=== PATIENT | male | born 1930 | race Caucasian/White ===

== ENCOUNTER 2018-08-04 10:11 | Emergency (ER) | payer MEDICARE, OTHER ==
[2018-08-04 10:34] VITALS: BP 156/93
--- NOTE | 2018-08-04 11:17 | UC ---
Skin Complaint HPI - HPI Summary HPI Summary: 87-year-old male comes to clinic today with a nonhealing wound right lower leg. He gets stuck by a THORN 2 weeks ago. It was not a saul rivas or blackberry rivas. He thinks it was more of a THISTLE. He denies any foreign body in. A firm area developed at the site. He's been keeping it clean treating it with triple antibiotic but is getting worse. No drainage no fevers. - History of Current Complaint Chief Complaint: UCSkin Time Seen by Provider: 08/04/18 10:41 Stated Complaint: SKIN ISSUE Pain Intensity: 0 - Allergy/Home Medications Allergies/Adverse Reactions: Allergies Allergy/AdvReac Type Severity Reaction Status Date / Time atorvastatin [From Lipitor] Allergy Severe Swelling Verified 08/04/18 10:25 Of Face,Lips,& Throat Iodinated Contrast- Oral and Allergy Mild Rash Verified 08/04/18 10:25 IV Dye levofloxacin [From Levaquin] Allergy Mild Rash Verified 08/04/18 10:25 Home Medications: Home Medications Aspirin 81 mg CHEW TAB* 162 mg PO DAILY 08/04/18 [History Confirmed 08/04/18] Losartan TAB* [Cozaar TAB*] 50 mg PO DAILY 08/04/18 [History Confirmed 08/04/18] Ubidecarenone [Co Q-10] 100 mg PO DAILY 08/04/18 [History Confirmed 08/04/18] Review of Systems Constitutional: Negative Skin: Other - SEE HPI Eyes: Negative ENT: Negative Respiratory: Negative Cardiovascular: Palpitations Gastrointestinal: Negative Motor: Negative Neurovascular: Negative Musculoskeletal: Negative Neurological: Negative Is Patient Immunocompromised?: No All Other Systems Reviewed And Are Negative: Yes PMH/Surg Hx/FS Hx/Imm Hx Cardiovascular History: Cardiac Disease - Surgical History Surgical History: Yes Surgery Procedure, Year, and Place: tonsilectomy,. ear drum as child,. 3 cardiac stents- 2016 - Family History Known Family History: Positive: None, Other - CANCER Family History: Per EMRs, negative fhx of htn/dm/cardiac - Social History Alcohol Use: Daily Alcohol Amount: wine Substance Use Type: None Smoking Status (MU): Never Smoked Tobacco - Immunization History Most Recent Influenza Vaccination: 2013 Most Recent Tetanus Shot: within last 5 years Most Recent Pneumonia Vaccination: 2013 Physical Exam Triage Information Reviewed: Yes Appearance: Well-Appearing, No Pain Distress, Well-Nourished Vital Signs: Initial Vital Signs Temp 98.4 F 08/04/18 10:28 Pulse 63 08/04/18 10:28 Resp 20 08/04/18 10:28 BP 156/93 08/04/18 10:28 Pulse Ox 97 08/04/18 10:28 Vital Signs Reviewed: Yes Eye Exam: Normal Eyes: Positive: Conjunctiva Clear Neck exam: Normal Neck: Positive: Supple Respiratory: Positive: No respiratory distress Musculoskeletal Exam: Normal Musculoskeletal: Positive: Strength Intact, ROM Intact, No Edema Neurological Exam: Normal Neurological: Positive: Alert, Muscle Tone Normal Psychological Exam: Normal Psychological: Positive: Age Appropriate Behavior Skin: Positive: Other - On the right lower leg. Is a 4 mm firm area. I do not appreciate any foreign body in the area. There is a 2 cm diameter erythematous rim. No streaking no drainage. Course/Dx - Course Course Of Treatment: The plan is to start Bactrim just in case there is MRSA involved. Will also switch to mupirocin to avoid the possibility of neomycin causing a reaction. If the patient IS NOT improved the pLAN have him follow-up with dermatology. - Diagnoses Provider Diagnoses: CELLULITIS RIGHT LOWER LEG Discharge - Sign-Out/Discharge Documenting (check all that apply): Patient Departure All imaging exams completed and their final reports reviewed: No Studies - Discharge Plan Condition: Stable Disposition: HOME Prescriptions: Mupirocin 1 applic TOPICAL TID #22 gm Sulfamethox/Trimethoprim DS* [Bactrim DS 800/160 TAB*] 1 tab PO BID #20 tab Patient Education Materials: Cellulitis (ED) Referrals: Scot Shafer MD [Primary Care Provider] - Tor Pastrana MD [Medical Doctor] - Additional Instructions: FOLLOW UP WITH DERMATOLOGY IF NOT COMPLETELY IMPROVED. GET RECHECKED FOR ANY WORSENING OF YOUR CONDITION OR QUESTIONS OR CONCERNS. - Billing Disposition and Condition Condition: STABLE Disposition: Home
== END 2018-08-04 11:19 | disposition home or self-care (01) ==
LOC: UCEAST 10:11
DX: L03.115 Cellulitis of right lower limb (principal); Z88.8 Allergy status to other drugs, medicaments and biological substances; Z91.041 Radiographic dye allergy status; Z79.82 Long term (current) use of aspirin; Z95.5 Presence of coronary angioplasty implant and graft
CPT/HCPCS: 99212; G0463